=== PATIENT | female | born 1990 | race Two or more races ===

== ENCOUNTER 2022-11-08 01:20 | Emergency (ER) | payer OTHER ==
[~2022-11-08] VITALS: Ht 157.5 cm; Wt 59.0 kg
[2022-11-08 01:35] VITALS: TEMP 98.1
[2022-11-08 02:42] VITALS: BP 116/72; O2SAT 98
== END 2022-11-08 02:43 ==
LOC: ER 01:22
DX: R45.6 Violent behavior (principal)